=== PATIENT | female | born 1965 | race Caucasian/White ===

== ENCOUNTER 2016-10-04 11:22 | Emergency (ER) | payer OTHER | END 2016-10-04 12:36 | disposition home or self-care (01) | LOC: ER1 11:22 | DX: S93.601A Unspecified sprain of right foot, initial encounter (principal); F17.210 Nicotine dependence, cigarettes, uncomplicated; Z88.1 Allergy status to other antibiotic agents; Z88.8 Allergy status to other drugs, medicaments and biological substances; Z79.899 Other long term (current) drug therapy; W19.XXXA Unspecified fall, initial encounter | CPT/HCPCS: 73630; 99283 ==

== ENCOUNTER 2016-12-12 19:23 | Emergency (ER) | payer OTHER | END 2016-12-12 21:40 | disposition home or self-care (01) | LOC: ER1 19:23 | DX: M54.42 Lumbago with sciatica, left side (principal); F17.210 Nicotine dependence, cigarettes, uncomplicated; Z88.0 Allergy status to penicillin | CPT/HCPCS: 72131; 96372; 99283; J1100; J1885 ==

== ENCOUNTER → 2022-01-02 | Outpatient (CLI) | payer OTHER ==
[~2022-01-02] MED LIST: ADVAIR 250-501 EACH INH; ANTIVERT 25MG T25 MG PO; CLARITIN 10MG T10 MG PO; FLONASE 0.05% N16 GM; IBUPROFEN800 MG PO; IMITREX50 MG PO; MEDROL4 MG PO; ULTRAM50 MG PO; VENTOLIN HFA 66.7 GM INH
== END ==
LOC: KOH-I 12-26 15:00
DX: J32.9 Chronic sinusitis, unspecified (principal)
CPT/HCPCS: 70486